=== PATIENT | female | born 1980 | race Hispanic/Latino ===

== ENCOUNTER 2022-11-01 08:57 | Day surgery (SDC) | payer BC ==
[2022-10-29 10:17] VITALS: BMI 29.2
[2022-11-01] MEDS ORDERED: EPINEPHrine 1 MG/10 ML Abboject SYRINGE ONE (10:38)
[2022-11-01] MEDS ORDERED: Midazolam HCl 2 mg/2 ml Vial ONE (10:41)
[2022-11-01] MEDS ORDERED: PROPOFOL 20 ML ONE (10:41)
[2022-11-01] MEDS ORDERED: PROPOFOL 40 ML ONE (10:41)
== END 2022-11-01 11:40 | disposition home or self-care (01) ==
LOC: CSHSDC 08:57
PROVIDERS: ATTEND Internal Medicine Gastroenterology
PROC: 0DB68ZX Excision of Stomach, Via Natural or Artificial Opening Endoscopic, Diagnostic (ICD-10-PCS; principal; 2022-11-01)
DX: K31.89 Other diseases of stomach and duodenum (principal); R10.13 Epigastric pain; K21.9 Gastro-esophageal reflux disease without esophagitis; E11.9 Type 2 diabetes mellitus without complications; I10 Essential (primary) hypertension; E78.5 Hyperlipidemia, unspecified; E66.9 Obesity, unspecified; Z68.29 Body mass index [BMI] 29.0-29.9, adult; Z88.0 Allergy status to penicillin
CPT/HCPCS: 88305; J0171; J2250; J2704